=== PATIENT | female | born 2005 | race African-American/Black ===

== ENCOUNTER 2024-01-17 03:28 | Emergency (ER) | payer MEDICAID, OTHER ==
[~2024-01-17] VITALS: Ht 162.6 cm; Wt 62.0 kg
[2024-01-17 03:37] VITALS: O2SAT 100
[2024-01-17 04:07] LABS: CLARITY URINE CLOUDY (CLEAR); COLOR URINE YELLOW (YELLOW); GLUCOSE URINE NEGATIVE (NEGATIVE); KETONES URINE NEGATIVE (NEGATIVE); LEUKOCYTE ESTERASE URINE 3+ (NEGATIVE); NITRITE URINE NEGATIVE (NEGATIVE); OCCULT BLOOD URINE 3+ (NEGATIVE); PROTEIN URINE 2+ (NEGATIVE); SPECIFIC GRAVITY URINE 1.015 (1.005-1.030)
[2024-01-17 04:19] LABS: BASOPHILS % 1.1 % (0.0-2.0); EOSINOPHILS % 1.9 % (0.0-5.0); HEMATOCRIT. 39.4 % (36.0-48.0); LYMPHOCYTES % 27.5 % (20.0-50.0); MEAN CORPUSCULAR HEMOGLOBIN 27.6 pg (28.0-32.0); MEAN CORPUSCULAR HGB CONC 33.1 g/dL (31.0-37.0); MEAN CORPUSCULAR VOLUME 83.5 fL (81.0-99.0); MEAN PLATELET VOLUME 8.5 fl (7.4-10.4); MONOCYTES % 9.1 % (2.0-8.0); NEUTROPHILS % 60.4 % (40.0-76.0); PLATELET 255 x1000/uL (130-400); RED BLOOD CELL COUNT 4.72 mill/uL (4.2-5.4); RED CELL DISTRIBUTION WIDTH 15.4 % (11.6-14.6); WHITE BLOOD COUNT 6.9 x1000/uL (4.5-11.0)
[2024-01-17 04:31] LABS: CHLORIDE 108 mEq/L (98-107); POTASSIUM 3.9 mEq/L (3.5-5.1); SODIUM 141 mEq/L (136-145)
[2024-01-17 04:32] LABS: CALCIUM 9.6 mg/dL (8.7-10.4); CARBON DIOXIDE 23 mEq/L (21-32)
[2024-01-17 04:37] LABS: CREATININE 0.8 mg/dL (0.6-1.0); GLUCOSE 95 mg/dL (70-105); UREA NITROGEN BLOOD 9 mg/dL (9-23)
[2024-01-17 04:39] LABS: ALANINE AMINOTRANSFERASE 14 IU/L (10-49); ALBUMIN 4.8 g/dL (3.2-4.8); ASPARTATE AMINOTRANSFERASE 14 IU/L (<34); BILIRUBIN DIRECT 0.3 mg/dL (<=3.0); BILIRUBIN TOTAL 0.7 mg/dL (0.1-1.0)
[2024-01-17 05:46] LABS: RBC URINE TNTC /hpf (0-2); SQUAMOUS EPITHELIAL CELL URINE 1+ /lpf (RARE/1+); WBC URINE TNTC /hpf (0-2)
[2024-01-17 05:47] LABS: BACTERIA URINE 3+
[2024-01-17 06:19] VITALS: TEMP 97.7
[2024-01-17] MEDS ORDERED: ONDA4TAB50 MT (06:21)
[2024-01-17] MEDS ORDERED: IBUP-1523 MT (06:21)
[2024-01-17] MEDS ORDERED: TOPUD MT (06:21)
[2024-01-17] MEDS ORDERED: NITR-87 MT (06:21)
[2024-01-17 06:26] VITALS: BP 105/77; PULSE 100; RESP 20
[2024-01-17] MEDS: IBUPROFEN 600MG TABLET PO ONE (06:26)
[2024-01-17] MEDS: ACETAMINOPHEN 325MG TABLET PO ONE (06:26)
== END 2024-01-17 06:35 | disposition home or self-care (01) ==
LOC: ER 03:44
DX: R10.9 Unspecified abdominal pain (principal); Z88.0 Allergy status to penicillin
CPT/HCPCS: 36415; 76857; 80048; 80076; 81003; 81025; 85025; 99284